=== PATIENT | male | born 1955 | race Caucasian/White ===

== ENCOUNTER 2018-06-29 15:22 | Emergency (ER) | payer BC ==
[2018-06-29 15:29] VITALS: BP 167/77; PULSE 69; RESP 16; TEMP 98.4
--- NOTE | 2018-06-29 17:15 | US ---
EXAMINATION TYPE: US venous doppler duplex LE RT DATE OF EXAM: 06/29/2018 4:56 PM COMPARISON: NONE CLINICAL HISTORY: Right kneePain. SIDE PERFORMED: Right TECHNIQUE: The lower extremity deep venous system is examined utilizing real time linear array sonog stephen with graded compression, doppler sonography and color-flow sonography. VESSELS IMAGED: External Iliac Vein (EIV) Common Femoral Vein Deep Femoral Vein Greater Saphenous Vein * Femoral Vein Popliteal Vein Small Saphenous Vein * Proximal Calf Veins (* superficial vessels) Right Leg: Negative for DVT Cystic area visualized in the right popliteal fossa measuring 3.6 x 0.9 x 2.0 cm, possible Koo's c yst IMPRESSION: No evidence of deep venous thrombosis. Popliteal cyst is noted.
--- NOTE | 2018-06-29 18:11 | ED ---
General Adult HPI - General Chief complaint: Extremity Injury, Lower Stated complaint: rt leg swelling to r/o dvt Time Seen by Provider: 06/29/18 16:13 Source: patient, RN notes reviewed Mode of arrival: wheelchair Limitations: no limitations - History of Present Illness Initial comments: 63-year-old male presents to the emergency department for a chief complaint of posterior right knee pain 2 days. Patient states he stepped off his lawnmower yesterday and felt a pain in the back of his right knee. Patient states it was painful to walk on yesterday and painful to bend. He states it felt better to extend the leg. Patient states his pain is much better today and he is able to walk on it without difficulty. However, patient did go to urgent care and they sent him to the emergency department for ultrasound. Patient denies fevers or chills at home. Patient denies any pain in the anterior aspect of the knee. Patient denies any pain in the calf of the right lower extremity. Patient denies any pain in the ankle or foot or hip. Patient did not sustain any other injuries. No history of blood clots. Patient denies smoking.Patient has no other complaints at this time including shortness of breath, chest pain, abdominal pain, nausea or vomiting, headache, or visual changes. - Related Data Home Medications Medication Instructions Recorded Confirmed No Known Home Medications 06/29/18 06/29/18 Allergies Allergy/AdvReac Type Severity Reaction Status Date / Time No Known Allergies Allergy Verified 06/29/18 15:30 Review of Systems ROS Statement: Those systems with pertinent positive or pertinent negative responses have been documented in the HPI. ROS Other: All systems not noted in ROS Statement are negative. Past Medical History Past Medical History: Hyperlipidemia History of Any Multi-Drug Resistant Organisms: None Reported Past Surgical History: No Surgical Hx Reported Past Psychological History: No Psychological Hx Reported Smoking Status: Former smoker Past Alcohol Use History: None Reported Past Drug Use History: None Reported General Exam Limitations: no limitations General appearance: alert, in no apparent distress Head exam: Present: atraumatic, normocephalic, normal inspection Eye exam: Present: normal appearance. Absent: scleral icterus, conjunctival injection ENT exam: Present: normal exam, mucous membranes moist Neck exam: Present: normal inspection, full ROM. Absent: tenderness, meningismus, lymphadenopathy Respiratory exam: Present: normal lung sounds bilaterally. Absent: respiratory distress, wheezes, rales, rhonchi, stridor Cardiovascular Exam: Present: regular rate, normal rhythm, normal heart sounds. Absent: systolic murmur, diastolic murmur, rubs, gallop, clicks Extremities exam: Present: full ROM (Patient has full extension of the right knee with 120 degrees flexion.), tenderness (minimal tenderness to the posterior right knee. No tenderness to the calf. No tenderness to the ankle. No tenderness to the anterior right knee.), normal capillary refill (Capillary refill less than 2 seconds and pedal pulse 2+.), joint swelling (Patient has minimal 1+ nonpitting edema noted of the right ankle), other (Patient is walk without difficulty. Patient is able to heel lift on the right extremity. Negative Montoya sign.). Absent: calf tenderness (No calf tenderness, negative Homans sign. Calf is soft and not indurated.) Course Vital Signs 06/29/18 15:27 Temperature 98.4 F Pulse Rate 69 Respiratory 16 Rate Blood Pressure 167/77 O2 Sat by Pulse 98 Oximetry Medical Decision Making - Medical Decision Making 63-year-old male presents to the emergency department for a chief complaint of right posterior knee pain 2 days. Patient stepped off his lawnmower wrong yesterday and felt a pain in the back of his knee. Patient states it was difficult to walk yesterday and felt better with extension. However today pain is significantly improved. Vitals within normal limits. Patient has full extension with 120 flexion of the right knee today. Capillary refill less than 10 seconds and pedal pulse 2+. Neurovascular intact. Patient is walking in the emergency department and can lift heels off ground. Negative Montoya's sign. Calf is soft and no evidence of compartment syndrome. Knee is non- erythematous, no evidence of cellulitis or infection. Ultrasound was ordered which was negative for DVT of right leg. There is a cystic area visualized in the right popliteal fossa that is a possible Koo's cyst. X-ray was offered which patient did not want. Patient likely either had a sprain behind the right knee of hamstring. Pain could also be caused by the Koo's cyst. Patient will follow up with primary care in 1-2 days. He will return to the emergency department if he has any worsening symptoms. Disposition Clinical Impression: Knee pain, right, Koo's cyst of knee Disposition: HOME SELF-CARE Condition: Good Instructions: Knee Pain (ED) Additional Instructions: Please follow up with primary care in 1-2 days. Please rest ice and elevate the right knee. Return to the emergency department if you have any worsening symptoms, signs of infection, or fever noted. Is patient prescribed a controlled substance at d/c from ED?: No Referrals: Isabela Padilla MD [Primary Care Provider] - 1-2 days Time of Disposition: 18:10
== END 2018-06-29 18:24 | disposition home or self-care (01) ==
LOC: EC 15:22
DX: M71.21 Synovial cyst of popliteal space [Baker], right knee (principal); Z87.891 Personal history of nicotine dependence
CPT/HCPCS: 99283

== ENCOUNTER → 2019-03-04 | Outpatient (CLI) | payer BC ==
--- NOTE | 2019-03-05 08:22 | MR ---
EXAMINATION TYPE: MR knee RT wo con DATE OF EXAM: 03/04/2019 COMPARISON: Plain film dated 02/18/2018 HISTORY: Rt knee pain, unable to fully bear weight on it TECHNIQUE: Multiplanar, multisequence imaging of the right knee is performed without IV contrast. FINDINGS: MEDIAL MENISCUS: Abnormal increased signal is present throughout the posterior medial meniscus extend ing to the body, there is pseudoextrusion and probably a para meniscal cyst, LATERAL MENISCUS: Anterior and posterior horns are intact without tear. CRUCIATE LIGAMENTS: The anterior and posterior cruciate ligaments are intact and unremarkable. COLLATERAL LIGAMENTS: The medial collateral ligament and lateral collateral ligament complex are inta ct and unremarkable. EXTENSOR MECHANISM: Visualized quadriceps and patellar tendons are intact. EFFUSION: Small joint effusion is present POPLITEAL CYST: There is a semimembranosus gastrocnemius cyst measuring approximately 17 mm x 4.7 cm x 19 mm. TRICOMPARTMENT SPACES: Joint space loss present in the medial compartment CARTILAGE: There is grade III chondromalacia medial compartment and lateral compartment, grade 2 to g rade III chondromalacia posterior patella BONE MARROW SIGNAL: Possible small in chondroma distal metaphyseal femur laterally subcentimeter in s ize. OTHER: There is subcutaneous edema. IMPRESSION: Complex tear the posterior horn of the medial meniscus. Osteoarthritis. Koo's cyst. Additional find ings above.
== END | disposition home or self-care (01) ==
LOC: RADMRIMAIN 16:22
PROVIDERS: ATTEND Orthopaedic Surgery
DX: S83.231A Complex tear of medial meniscus, current injury, right knee, initial encounter (principal); X58.XXXA Exposure to other specified factors, initial encounter; M17.11 Unilateral primary osteoarthritis, right knee; M71.21 Synovial cyst of popliteal space [Baker], right knee; M22.41 Chondromalacia patellae, right knee

== ENCOUNTER → 2019-03-25 | Outpatient (CLI) | payer BC ==
--- NOTE | 2019-03-26 07:20 | US ---
EXAMINATION TYPE: US scrotum with doppler. Grayscale and color Doppler Duplex imaging performed of t he scrotum. DATE OF EXAM: 03/25/2019 COMPARISON: NONE CLINICAL HISTORY: N50.819 Testicular pain. Pain right testicle x 3 weeks. EXAM MEASUREMENTS: TESTICLES: Right Testicle: 4.3 x 3.1 x 2.9 cm Left Testicle: 4.2 x 3.0 x 2.5 cm EPIDIDYMIS HEAD: Right Epididymis: 1.1 x 1.6 x 1.2 cm Left Epididymis: 1.3 x 1.2 x 0.9 cm Doppler performed to assess for testicular vascularity; good bilateral color flow and waveforms are s een. There is no evidence of testicular torsion. Presence of hydroceles: Fluid collections seen bilaterally. Fluid seen laterally on right side measu rin.1 x 1.6 x 1.1 cm. Fluid seen medially on left side measurin.7 x 0.9 x 0.7 cm. Presence of varicoceles: No evidence of varicoceles. Epididymis appears heterogeneous bilaterally. Hyperechoic area seen right testicle measurin.2 x 0.2 x 0.1 cm. IMPRESSION: 1. Bilateral hydroceles. 2. Correlate for epididymitis. 3. Hyperechoic 2 mm structure within the right testicle is too small to characterize may represent a tiny calcification could be followed on short-term 3-6 month basis.
== END | disposition home or self-care (01) ==
LOC: RADUSWWP 16:41
PROVIDERS: ATTEND Family Medicine
DX: N43.3 Hydrocele, unspecified (principal)
CPT/HCPCS: 76870; 93975

== ENCOUNTER → 2019-07-30 | Outpatient (CLI) | payer BC ==
--- NOTE | 2019-07-30 09:59 | US ---
EXAMINATION TYPE: US abdomen complete DATE OF EXAM: 07/30/2019 COMPARISON: NONE CLINICAL HISTORY: M54.5 LOW BACK PAIN,R39.11 HESITANCY IN MICTURATION. Patient stated has low back ac he and pelvic pain bilaterally and also mentioned he has possible umbilical hernia. EXAM MEASUREMENTS: Liver Length: 17.6 cm Gallbladder Wall: 0.1 cm CBD: 0.3 cm Spleen: 10.4 cm Right Kidney: 11.4 x 5.3 x 5.1 cm Left Kidney: 10.9 x 5.5 x 5.3 cm Pancreas: hyperechoic Liver: fatty as liver is attenuated posteriorly and is hyperechoic to right renal cortex Gallbladder: wnl Evidence for sonographic Mandujano's sign: no CBD: wnl Spleen: wnl Right Kidney: No hydronephrosis or masses seen Left Kidney: No hydronephrosis or masses seen Upper IVC: wnl Abd Aorta: wnl Umbilical area: small amount of bowel area is noted to move anteriorly to umbilical area in Transver se View with Valsalva Maneuver. Pelvic area of Pain: bowel is noted The intrahepatic portion of the IVC and proximal abdominal aorta are within normal limits. There is no evidence of cholelithiasis. Common bile duct is unremarkable. The visualized portions of the herndon creas are homogenous. The spleen is unremarkable. Kidneys are symmetric and free of hydronephrosis. No renal lesions are seen. IMPRESSION: 1. Hepatic steatosis. 2. Periumbilical hernia.
== END | disposition home or self-care (01) ==
LOC: RADUSWWP 08:40
PROVIDERS: ATTEND Family Medicine
DX: K76.0 Fatty (change of) liver, not elsewhere classified (principal); K42.9 Umbilical hernia without obstruction or gangrene; R39.11 Hesitancy of micturition
CPT/HCPCS: 76700

== ENCOUNTER → 2019-10-13 | Outpatient (CLI) | payer BC ==
--- NOTE | 2019-10-13 09:40 | US ---
EXAMINATION TYPE: US scrotum with doppler. Grayscale and color Doppler Duplex imaging performed of t tyshawn scrotum. DATE OF EXAM: 10/13/2019 COMPARISON: Prior scrotal ultrasound March 25, 2019. CLINICAL HISTORY: N50.9 Disorder of male genital organs. f/u to previous EXAM MEASUREMENTS: TESTICLES: Right Testicle: 4.3 x 2.6 x 3.4 cm Left Testicle: 4.6 x 2.3 x 3.0 cm EPIDIDYMIS HEAD: Right Epididymis: .8 cm Left Epididymis: 1.0 cm Doppler performed to assess for testicular vascularity; good bilateral color flow and waveforms are s een. Presence of hydroceles: Small amount of fluid on right side. Presence of varicoceles: No Current study shows interval improvement in bilateral pleural fluid collection or hydroceles. Compari son images were sent both study show symmetric blood flow. IMPRESSION: Improving scrotal fluid collection or hydroceles. No suspicious intratesticular mass or a symmetric blood flow on current study.
== END | disposition home or self-care (01) ==
LOC: RADUSWWP 07:19
PROVIDERS: ATTEND Family Medicine
DX: N50.9 Disorder of male genital organs, unspecified (principal)
CPT/HCPCS: 76870; 93975

== ENCOUNTER → 2020-10-19 | Outpatient (CLI) | payer MEDICAID ==
--- NOTE | 2020-10-19 11:50 | US ---
EXAMINATION TYPE: US scrotum with doppler. Grayscale and color Doppler Duplex imaging performed of leilani villagran scrotum. DATE OF EXAM: 10/19/2020 COMPARISON: Ultrasound 10/13/2019 CLINICAL HISTORY: R10.84 ABD PAIN,N45.1 HYDROCELE,K46.9 HERNIA AND O BSTRUCTION. EXAM MEASUREMENTS: TESTICLES: Right Testicle: 4.7 x 2.2 x 3.5 cm Left Testicle: 4.4 x 2.1 x 2.9 cm EPIDIDYMIS HEAD: Right Epididymis: 1.4 x 0.8 cm Left Epididymis: 1.0 x 0.8 cm Doppler performed to assess for testicular vascularity; bilateral color flow and waveforms are seen. Presence of hydroceles: small bilateral fluid collection Presence of varicoceles: Small tubular structures posterior to left testicle. Testicular echotexture is homogenous and symmetric. IMPRESSION: Small hydroceles. Small left varicocele
--- NOTE | 2020-10-19 11:57 | US ---
EXAMINATION TYPE: US abdomen comp/pelvis limited DATE OF EXAM: 10/19/2020 COMPARISON: US CLINICAL HISTORY: R10.84 ABD PAIN,N45.1 HYDROCELE,K46.9 HERNIA AND OBSTRUCTION. EXAM MEASUREMENTS: Liver Length: 13.8 cm Gallbladder Wall: 0.3 cm CBD: 0.4 cm Spleen: 10.8 cm Right Kidney: 10.4 x 4.3 x 4.3 cm Left Kidney: 11.5 x 6.6 x 5.1 cm Post Void Residual: 54.6 mL Umbilical hernia redemonstrated measures 0.8 cm. Pancreas: visualized portions wnl Liver: Echotexture somewhat coarse similar to prior exam, no discrete mass Gallbladder: wnl CBD: wnl Spleen: wnl Right Kidney: No hydronephrosis or masses seen Left Kidney: No hydronephrosis or masses seen Upper IVC: Normal as seen Abd Aorta: No evident aneurysm Bladder: wnl Bilateral Jets Seen Yes Normal Post Void Residual (normal less than 50ml) measures 54.6 ml. IMPRESSION: Periumbilical hernia, questionable bowel content within the hernia, hepatic steatosis.
== END | disposition home or self-care (01) ==
LOC: RADUSWWP 08:05
PROVIDERS: ATTEND Family Medicine
DX: N43.3 Hydrocele, unspecified (principal); I86.1 Scrotal varices; K42.9 Umbilical hernia without obstruction or gangrene
CPT/HCPCS: 76700; 76857; 76870; 93975

== ENCOUNTER → 2020-12-01 | Outpatient (CLI) | payer MEDICAID ==
--- NOTE | 2020-12-01 11:49 | CT ---
EXAMINATION TYPE: CT abdomen pelvis w con DATE OF EXAM: 12/01/2020 COMPARISON: None HISTORY: Groin discomfort and swelling for 1-[address] DLP: 1490 mGycm Automated exposure control for dose reduction was used. CONTRAST: CT scan of the abdomen pelvis is performed with IV Contrast, patient injected with 100 mL of Isovue 3 00. FINDINGS- LUNG BASES-subsegmental changes at the lung bases most typical atelectasis. There is a left lower lob e 4 mm nodule along the upper margin of the diaphragm.. LIVER/GB-slightly diminished attenuation of liver can be associated with mild fatty infiltration. No gallstones.. PANCREAS- No gross abnormality is seen. SPLEEN- No gross abnormality is seen. ADRENALS-5 mm nodularity of the left adrenal gland too small to characterize.. KIDNEYS/BLADDER- no hydronephrosis nephrolithiasis or renal mass. BOWEL-mild wall thickening of the sigmoid colon and left colon with occasional diverticula noted. Deg enerative changes LYMPH NODES- No greater than 1cm abdominal or pelvic lymph nodes areappreciated. OSSEOUS STRUCTURES-hypertrophic and degenerative changes of the spine.. OTHER- bilateral fat-containing inguinal hernias. There is no soft tissue mass. Shotty nonpathologic sized lymph nodes are seen bilaterally in the inguinal region and femoral region. Metallic density s een in the perineal region tiny fat-containing periumbilical hernia. IMPRESSION- 1. Mild wall thickening and occasional diverticula of the sigmoid and left colon most likely in the b asis of diverticulosis with no diagnostic evidence of diverticulitis. No inflammatory changes. Correl ate with direct visualization as symptoms warrant. 2. There is no evidence of a inguinal soft tissue mass. Tiny fat-containing inguinal hernia. No suspi cious adenopathy.
== END | disposition home or self-care (01) ==
LOC: RADCTMAIN 09:21
PROVIDERS: ATTEND Surgery Plastic and Reconstructive Surgery
DX: K40.90 Unilateral inguinal hernia, without obstruction or gangrene, not specified as recurrent (principal); R93.3 Abnormal findings on diagnostic imaging of other parts of digestive tract
CPT/HCPCS: 74177; Q9967

== ENCOUNTER 2020-12-03 09:18 | Emergency (ER) | payer MEDICAID ==
[2020-12-03 09:33] VITALS: BP 160/108; PULSE 78; RESP 18; TEMP 98.6
--- NOTE | 2020-12-03 10:04 | ED ---
General Adult HPI - General Chief complaint: Skin/Abscess/Foreign Body Stated complaint: leg pain Time Seen by Provider: 12/03/20 09:33 Source: patient Mode of arrival: ambulatory Limitations: no limitations - History of Present Illness Initial comments: Patient is a 65-year-old white male who presents to the ER with right lower extremity tenderness and cramping. He stated that it started with a cramp in his right calf on and has since worked its way up to his thigh. He denied any injuries or trauma. He was in no apparent distress or pain. He noted that he went to his primary care physician who noted that he might want to get tested for DVT. Patient expressed his concern for possible DVT or muscle/bone injury to right leg. He stated that he wanted an x-ray but did not want any blood work. He said the pain has been basically constant since . He has not tried anything to help alleviate the pain nothing makes the pain worse. He denied any claudication, pain on walking, shortness of breath, chest pain, fever, chills, night, sweats, fatigue nausea, vomiting, diarrhea, constipation - Related Data Home Medications Medication Instructions Recorded Confirmed No Known Home Medications 06/29/18 06/29/18 Allergies Allergy/AdvReac Type Severity Reaction Status Date / Time No Known Allergies Allergy Verified 12/03/20 09:33 Review of Systems ROS Statement: Those systems with pertinent positive or pertinent negative responses have been documented in the HPI. ROS Other: All systems not noted in ROS Statement are negative. Past Medical History Past Medical History: Hyperlipidemia History of Any Multi-Drug Resistant Organisms: None Reported Past Surgical History: No Surgical Hx Reported Past Psychological History: No Psychological Hx Reported Smoking Status: Never smoker Past Alcohol Use History: None Reported Past Drug Use History: None Reported General Exam Limitations: no limitations General appearance: alert, in no apparent distress Head exam: Present: atraumatic, normocephalic, normal inspection Eye exam: Present: normal appearance, PERRL, EOMI. Absent: scleral icterus, conjunctival injection, periorbital swelling ENT exam: Present: normal exam, mucous membranes moist Neck exam: Present: normal inspection. Absent: tenderness, meningismus, lymphadenopathy Respiratory exam: Present: normal lung sounds bilaterally. Absent: respiratory distress, wheezes, rales, rhonchi, stridor Cardiovascular Exam: Present: regular rate, normal rhythm, normal heart sounds. Absent: systolic murmur, diastolic murmur, rubs, gallop, clicks Extremities exam: Present: tenderness (Right medial thigh to palpation) Neurological exam: Present: alert, oriented X3, CN II-XII intact Psychiatric exam: Present: normal affect, normal mood Skin exam: Present: warm, dry, intact, normal color. Absent: rash Course Vital Signs 12/03/20 09:29 Temperature 98.6 F Pulse Rate 78 Respiratory 18 Rate Blood Pressure 160/108 O2 Sat by Pulse 99 Oximetry Medical Decision Making - Medical Decision Making 65-year-old male with right lower extremity pain. D-dimer, venous duplex Doppler, x-ray of right upper leg ordered. - Radiology Data Radiology results: report reviewed, image reviewed For mole had articulates with the acetabulum. No acute fracture in the proximal femurs is evident. The distal femur appears intact. There is no moderate degenerative joint changes at the knee. Doppler ultrasound Right lower extremity ultrasound negative for deep venous thrombosis. Disposition Clinical Impression: Muscle spasms of lower extremity, Muscle cramp Disposition: HOME SELF-CARE Instructions (If sedation given, give patient instructions): Muscle Spasm (ED), Muscle Cramp (ED) Additional Instructions: Please return to the Emergency Department if symptoms worsen or any other concerns. Patient informed that Doppler and x-ray came back negative for any fractures or DVT. Patient informed tenderness and cramping could be due to electrolyte or cramping. Is patient prescribed a controlled substance at d/c from ED?: No Referrals: Isabela Padilla MD [Primary Care Provider] - 1-2 days Decision Time: 11:19
--- NOTE | 2020-12-03 11:05 | US ---
EXAMINATION TYPE: US venous doppler duplex LE RT DATE OF EXAM: 12/03/2020 10:12 AM COMPARISON: 06/19/2018 CLINICAL HISTORY: Right lower extremity tenderness and cramping. right leg pain SIDE PERFORMED: right TECHNIQUE: The lower extremity deep venous system is examined utilizing real time linear array sonog stephen with graded compression, doppler sonography and color-flow sonography. VESSELS IMAGED: Common Femoral Vein Deep Femoral Vein Greater Saphenous Vein * Femoral Vein Popliteal Vein Small Saphenous Vein * Proximal Calf Veins (* superficial vessels) Right Leg: no evidence of DVT Popliteal cyst not identified on the current exam. IMPRESSION: 1. Right lower extremity ultrasound negative for deep venous thrombosis.
--- NOTE | 2020-12-03 11:06 | XR ---
EXAMINATION TYPE: XR Femur RT 1 View DATE OF EXAM: 12/03/2020 COMPARISON: None HISTORY: Right lower extremity pain and swelling TECHNIQUE: AP right femur FINDINGS: Femoral head articulates with the acetabulum. No acute fracture and the proximal femur is e vident. The distal femur appears intact. There is moderate degenerative joint changes at the knee. IMPRESSION: 1. Degenerative joint changes greatest at the knee. 2. No acute osseous abnormality AP right femur.
== END 2020-12-03 11:22 | disposition home or self-care (01) ==
LOC: EC 09:18
DX: M62.838 Other muscle spasm (principal)
CPT/HCPCS: 99284

== ENCOUNTER 2020-12-15 07:49 | Day surgery (SDC) | payer MEDICAID ==
[2020-12-13 10:48] VITALS: BMI 30.8
--- NOTE | 2020-12-15 06:37 | P.GSHP ---
History of Present Illness H&P Date: 12/15/20 CHIEF COMPLAINT: Colon screen HISTORY OF PRESENT ILLNESS: The patient is a 65-year-old male who presents for colon screen. Lower endoscopy was offered for further evaluation and management. PAST MEDICAL HISTORY: Please see list. PAST SURGICAL HISTORY: Please see list. MEDICATIONS: Please see list. ALLERGIES: Please see list. SOCIAL HISTORY: No illicit drug use FAMILY HISTORY: No reports of Crohn disease or ulcerative colitis. REVIEW OF ORGAN SYSTEMS: CONSTITUTIONAL: No reports of fevers or chills. PHYSICAL EXAM: VITAL SIGNS: Stable GENERAL: Well-developed pleasant in no acute distress. HEENT: No scleral icterus. Extraocular movements grossly intact. Moist buccal mucosa. NECK: Supple without lymphadenopathy. CHEST: Unlabored respirations. Equal bilateral excursions. CARDIOVASCULAR: Regular rate and rhythm. Distal 2+ pulses. ABDOMEN: Soft, nontender, nondistended. MUSCULOSKELETAL: No clubbing, cyanosis, or edema. ASSESSMENT: 1. Colon screen. PLAN: 1. Recommend proceeding with a lower endoscopy Past Medical History Past Medical History: Hyperlipidemia History of Any Multi-Drug Resistant Organisms: None Reported Past Surgical History: No Surgical Hx Reported Additional Past Surgical History / Comment(s): DEVIATED SEPTUM REPAIR Past Anesthesia/Blood Transfusion Reactions: No Reported Reaction Smoking Status: Never smoker - Past Family History Father Family Medical History: Cancer Mother Family Medical History: Cancer Medications and Allergies Home Medications Medication Instructions Recorded Confirmed Type Atorvastatin [Lipitor] 20 mg PO HS 12/13/20 12/13/20 History Allergies Allergy/AdvReac Type Severity Reaction Status Date / Time No Known Allergies Allergy Verified 12/13/20 10:41
[~2020-12-15 07:49] MED LIST: LACTATED RINGERS 1,000 ML IV SCH; LIDOCAINE 1% (10MG/ML) FOR IV START INTRADERMA PRN
[2020-12-15 08:14] VITALS: TEMP 97
[2020-12-15] MEDS ORDERED: PROPOFOL 10 MG/ML 20 ML VIAL IV ONE (09:29)
--- NOTE | 2020-12-15 09:56 | P.PCN ---
Date of Procedure: 12/15/20 Description of Procedure: PREOPERATIVE DIAGNOSIS: Colonoscopy screening. Family history colon cancer POSTOPERATIVE DIAGNOSIS: Colonoscopy screening. Family history colon cancer Diverticulosis, scattered. OPERATION: Colonoscopy to the cecum, ileocecal valve and appendiceal orifice. SURGEON: Tamia Patel MD. ANESTHESIA: MAC. INDICATIONS: The patient is a 65-year-old male who presents for colonoscopy screening. He has a family history of colon cancer. Recent colonoscopy as 5 Benefits and ris ks were described and informed consent was obtained. DESCRIPTION OF PROCEDURE: The patient had undergone Suprep pills. He had been brought into the operating room and laid in the left lateral decubitus position. After adequate intravenous sedation, the rectum was examined with 2% lidocaine jelly. No external hemorrhoids were encountered. The prostate was full without nodularity. The rectal tone was within normal limits. No lesions were palpated in the rectal vault. An Olympus colonoscope was advanced until the cecum, ileocecal valve and appendiceal orifice were clearly viewed. The prep was excellent. Scattered diverticulosis was encountered. No colonic polyps were found. No evidence of focal colitis was found. Retroflexion of the scope demonstrated grade 1 internal hemorrhoids without active bleeding or inflammation. The colon was desufflated. The patient had tolerated the procedure well. Withdrawal time was over 6 minutes. FINDINGS: Aronchick preparation quality scale 1 (1-5) Internal hemorrhoids, grade 1 No external prolapsed hemorrhoids. No arteriovenous malformations. No adenomatous polyps. No focal colitis. Scattered sigmoid diverticulosis RECOMMENDATIONS: Lower endoscopy in 5 years2025 Plan - Discharge Summary Discharge Rx Participant: No New Discharge Prescriptions: Continue Atorvastatin [Lipitor] 20 mg PO HS Discharge Medication List Atorvastatin [Lipitor] 20 mg PO HS 12/13/20 [History] Follow up Appointment(s)/Referral(s): Tamia Patel MD [STAFF PHYSICIAN] - 12/20/20 Patient Instructions/Handouts: Diverticulosis (DC), Diverticulosis Diet (GEN), *Surgery [facility] - (Anesthesia) Endoscopy Discharge Instructions, Colonoscopy (DC) Activity/Diet/Wound Care/Special Instructions: Repeat colonoscopy in 5 years2025 Discharge Disposition: HOME SELF-CARE
[2020-12-15 10:39] VITALS: BP 129/48; PULSE 57; RESP 16
== END 2020-12-15 10:50 | disposition home or self-care (01) ==
LOC: ORWHC2ENDO 07:49
PROVIDERS: ATTEND Surgery Plastic and Reconstructive Surgery
DX: Z12.11 Encounter for screening for malignant neoplasm of colon (principal); K57.30 Diverticulosis of large intestine without perforation or abscess without bleeding; K64.0 First degree hemorrhoids; Z80.0 Family history of malignant neoplasm of digestive organs; E78.5 Hyperlipidemia, unspecified; K21.9 Gastro-esophageal reflux disease without esophagitis; Z79.899 Other long term (current) drug therapy
CPT/HCPCS: G0105; J2704; 45378

== ENCOUNTER → 2022-11-06 | Outpatient (CLI) | payer MEDICARE ==
--- NOTE | 2022-11-06 12:13 | US ---
EXAMINATION TYPE: US st tissue neck DATE OF EXAM: 11/06/2022 COMPARISON: NONE CLINICAL HISTORY: 67-year-old male L04.9 R59.0. Cathode Washer notes: Patient states doctor felt a lump left lateral neck and thought he had an ear infe ction. Patient has been on antibiotics for 3 weeks. Patient could not point out palpable at time of scan, and indicated the left lateral neck instead. Technique: Area of concern scanned. FINDINGS: Largest lymph node measured, this is upper limits of normal for the submandibular space, short axis m easured = 0.6 cm and no cortical thickening. Contralateral right-sided images taken. IMPRESSION: A borderline sized submandibular space lymph node on the left measuring 6 mm short axis. It otherwise has an overall benign morphology. This node can be followed clinically. If any progressive enlargeme nt or suspicious clinical features develop, the area can be reimaged.
== END | disposition home or self-care (01) ==
LOC: RADUSWWP 10:41
PROVIDERS: ATTEND Family Medicine
DX: L04.9 Acute lymphadenitis, unspecified (principal)
CPT/HCPCS: 76536